=== PATIENT | male | born 1945 | race Caucasian/White ===

== ENCOUNTER → 2018-12-18 09:34 | Outpatient (CLI) | payer MEDICARE, SELFPAY ==
[2018-12-18 08:49] VITALS: BMI 29.0
--- NOTE | 2018-12-18 09:37 | RAD_ITS ---
STUDY: X-RAY CHEST REASON FOR EXAM: Male, 73 years old. Shortness of breath. TECHNIQUE: PA and lateral views of the chest. COMPARISON: None. FINDINGS: Calcified punctate micronodules throughout the bilateral lung field suggestive of previous granulomatous infection. Remainder of the lungs are clear and expanded. There is no demonstrated pleural abnormality. Normal size heart. Normal mediastinum and colette. Normal visualized pulmonary arteries. There is atherosclerotic calcification of the aortic arch with tortuosity. Suboptimally visualized thoracic spine. There is degenerative osteoarthritis of the bilateral shoulders. There is no demonstrated abnormality of the visualized soft tissue structures of the upper abdomen. RAD/Chest PA and Lateral IMPRESSION: Evidence of previous granulomatous infection otherwise no acute cardiopulmonary disease. Electronically Signed: Hue Escalera MD at 0:45 EDT , Service support ,
== END ==
PROVIDERS: Family Provider Internal Medicine; PCP Internal Medicine; Referring Provider Internal Medicine; Visit Provider Internal Medicine
DX: R06.02 Shortness of breath (principal); R91.8 Other nonspecific abnormal finding of lung field
CPT/HCPCS: 71046

== ENCOUNTER 2021-03-22 18:49 | Outpatient (CLI) | payer OTHER, SELFPAY | END 2021-03-22 23:59 | disposition short-term general hospital (02) | PROVIDERS: Referring Provider Otolaryngology; Visit Provider Otolaryngology | DX: J34.89 Other specified disorders of nose and nasal sinuses (principal) ==